=== PATIENT | male | born 1995 | race Caucasian/White ===

== ENCOUNTER 2016-07-13 00:28 | Emergency (ER) | payer BC ==
[~2016-07-13] VITALS: Ht 180.3 cm; Wt 61.5 kg
[2016-07-13 00:37] VITALS: BP 132/73; PULSE 80; RESP 16; TEMP 97.6; O2SAT 100
[2016-07-13] MEDS ORDERED: SODIUM CHLOR 0.9% 1000 ML INJ 1,000 ML IV SCH (00:49)
[2016-07-13 00:50] VITALS: BP 145/78; PULSE 80; RESP 18; O2SAT 100
[2016-07-13] MEDS ORDERED: ONDANSETRON HCL 4 MG/2 ML VIAL IVP ONE (01:00)
[2016-07-13] MEDS ORDERED: SODIUM CHLORIDE 0.9% FLUSH 10 ML FLUSH IV FLUSH PRN (01:00)
[2016-07-13] MEDS ORDERED: MORPHINE SULFATE 4 MG/ML INJ IV PUSH ONE (01:00)
[2016-07-13 01:05] VITALS: RESP 18; O2SAT 100
--- NOTE | 2016-07-13 01:10 | PD ---
HPI Chief Complaint: flank/testicular pain Time Seen by Provider: 00:42 Travel History International Travel<30 days: No Contact w/Intl Traveler<30days: No Traveled to known affect area: No History of Present Illness HPI 21-year-old male here for evaluation of left flank and testicular pain. Patient states that the symptoms started about an hour prior to arrival with left flank pain which then radiated to his testicles. Pain is now mainly in his bilateral testicles, constant, sharp, moderate to severe, worse with movement and palpation. States that the left flank pain is currently mild. He has been having some cloudy urine and dysuria lately. He states he has not been sexually active in several months. No history of abdominal surgeries. No fevers or chills. No nausea or vomiting. No trauma. PFSH Social History Tobacco Use: Yes Allergies-Medications (Allergen,Severity, Reaction): Coded Allergies: No Known Allergies (Unverified , 07/13/16) Reported Meds & Prescriptions Reported Meds & Active Scripts Active Flomax (Tamsulosin HCl) 0.4 Mg Cap 0.4 Mg PO HS Zofran Odt (Ondansetron Odt) 4 Mg Tab 4 Mg SL Q8HR PRN Lortab (Hydrocodone-Acetaminophen) 5-325 Mg Tab 1 Tab PO Q6H PRN Review of Systems Except as stated in HPI: all other systems reviewed are Neg Physical Exam Narrative GENERAL: Well-developed, well-nourished, overweight, no acute distress. SKIN: Focused skin assessment warm/dry. HEAD: Atraumatic. Normocephalic. EYES: Pupils equal and round. No scleral icterus. No injection or drainage. ENT: No nasal bleeding or discharge. Mucous membranes pink and moist. Poor dentition. NECK: Trachea midline. No JVD. CARDIOVASCULAR: Regular rate and rhythm. RESPIRATORY: No accessory muscle use. Clear to auscultation. Breath sounds equal bilaterally. GASTROINTESTINAL: Abdomen soft, non-tender, nondistended. : Normal-appearing genitalia without edema, without masses, without skin color changes. There is bilateral testicular tenderness without masses, without crepitus. Normal cremasterics reflex bilaterally. MUSCULOSKELETAL: No obvious deformities. No clubbing. No cyanosis. No edema. Mild left CVA tenderness. No right CVA tenderness. NEUROLOGICAL: Awake and alert. No obvious cranial nerve deficits. Motor grossly within normal limits. Normal speech. PSYCHIATRIC: Appropriate mood and affect; insight and judgment normal. Data Data Last Documented VS Vital Signs Date Time Temp Pulse Resp B/P Pulse Ox O2 Delivery O2 Flow Rate FiO2 07/13/16 03:05 16 07/13/16 03:05 76 131/71 99 Room Air 07/13/16 00:37 97.6 Orders Complete Blood Count With Diff (07/13/16 00:49) Comprehensive Metabolic Panel (07/13/16 00:49) Lipase (07/13/16 00:49) Prothrombin Time / Inr (Pt) (07/13/16 00:49) Act Partial Throm Time (Ptt) (07/13/16 00:49) Urinalysis - C+S If Indicated (07/13/16 00:49) Ct Abd/Pel W/O Iv Contrast (07/13/16 00:49) Iv Access Insert/Monitor (07/13/16 00:49) Ecg Monitoring (07/13/16 00:49) Oximetry (07/13/16 00:49) Morphine Inj (Morphine Inj) (07/13/16 01:00) Ondansetron Inj (Zofran Inj) (07/13/16 01:00) Sodium Chlor 0.9% 1000 Ml Inj (Ns 1000 M (07/13/16 00:49) Sodium Chloride 0.9% Flush (Ns Flush) (07/13/16 01:00) Gc And Chlamydia Pcr (07/13/16 00:49) Us Testicles W Doppler (07/13/16 00:49) Ketorolac Inj (Toradol Inj) (07/13/16 02:15) Tamsulosin (Flomax) (07/13/16 02:15) Potassium Chloride (Kcl) (07/13/16 02:15) Labs Laboratory Tests Test 07/13/16 07/13/16 00:45 01:00 Urine Color YELLOW Urine Turbidity MARKED Urine pH 7.5 Urine Specific [place] 1.019 Urine Protein TRACE mg/dL Urine Glucose (UA) NEG mg/dL Urine Ketones NEG mg/dL Urine Occult Blood LARGE Urine Nitrite NEG Urine Bilirubin NEG Urine Leukocyte Esterase NEG Urine RBC 25-49 /hpf Urine WBC 0-2 /hpf Urine Squamous Epithelial 0-5 /hpf Cells Urine Amorphous Sediment LARGE Urine Mucus FEW /lpf Microscopic Urinalysis Comment CULT NOT INDICATED White Blood Count 8.0 TH/MM3 Red Blood Count 4.61 MIL/MM3 Hemoglobin 14.5 GM/DL Hematocrit 42.8 % Mean Corpuscular Volume 92.7 FL Mean Corpuscular Hemoglobin 31.5 PG Mean Corpuscular Hemoglobin 33.9 % Concent Red Cell Distribution Width 13.5 % Platelet Count 192 TH/MM3 Mean Platelet Volume 8.5 FL Neutrophils (%) (Auto) 55.6 % Lymphocytes (%) (Auto) 36.7 % Monocytes (%) (Auto) 6.3 % Eosinophils (%) (Auto) 0.6 % Basophils (%) (Auto) 0.8 % Neutrophils # (Auto) 4.5 TH/MM3 Lymphocytes # (Auto) 2.9 TH/MM3 Monocytes # (Auto) 0.5 TH/MM3 Eosinophils # (Auto) 0.0 TH/MM3 Basophils # (Auto) 0.1 TH/MM3 CBC Comment DIFF FINAL Differential Comment Prothrombin Time 11.6 SEC Prothromb Time International 1.0 RATIO Ratio Activated Partial 21.0 SEC Thromboplast Time Sodium Level 141 MEQ/L Potassium Level 2.8 MEQ/L Chloride Level 104 MEQ/L Carbon Dioxide Level 25.2 MEQ/L Anion Gap 12 MEQ/L Blood Urea Nitrogen 8 MG/DL Creatinine 1.10 MG/DL Estimat Glomerular Filtration 83 ML/MIN Rate Random Glucose 124 MG/DL Calcium Level 9.3 MG/DL Total Bilirubin 0.5 MG/DL Aspartate Amino Transf 11 U/L (AST/SGOT) Alanine Aminotransferase 18 U/L (ALT/SGPT) Alkaline Phosphatase 69 U/L Total Protein 7.5 GM/DL Albumin 4.3 GM/DL Lipase 389 U/L [facility] Medical Decision Making Medical Screen Exam Complete: Yes Emergency Medical Condition: Yes Differential Diagnosis Nephrolithiasis, pyelonephritis, UTI, hydrocele, varicocele, testicular torsion , epididymitis, orchitis Narrative Course Initial vital signs show heart rate 80, blood pressure 132/73, pulse ox 100% on room air, oral temp of 97.6F. CBC is unremarkable. CMP is remarkable for potassium of 2.8 which was replaced orally. UA shows large occult blood, 25-49 RBCs, few mucus. CT abdomen pelvis: CONCLUSION: Mild hydronephrosis of the left kidney with the distal 2 mm UVJ stone. Testicular ultrasound: CONCLUSION: Normal examination. Patient made aware of all findings. He is resting comfortably. He is stable for discharge home with outpatient follow-up with a primary care physician/ urologist this week. I will give him a prescription for Flomax, pain medication , and antiemetics. He states he has had a few episodes of vomiting, likely contribute to his hypokalemia. He will also be discharged home with a urine strainer. He was informed on when to return to the emergency department. He verbalizes understanding and agreement with plan. Diagnosis Primary Impression: Ureterolithiasis Additional Impression: Hypokalemia Referrals: Jimy Marquez MD 1 week Urologist Primary Care Physician 3 days Additional Instructions: Follow-up with a primary care physician this week. Follow-up with urologist Dr. Marquez or a urologist of your choice this week. Return to the emergency department for worsening symptoms or any other concerns. Scripts Tamsulosin (Flomax)0.4 Mg Cap0.4 Mg PO HS #10 CAP Ref 0 Prov:Mario Cartwright MD 07/13/16 Ondansetron Odt (Zofran Odt)4 Mg Tab4 Mg SL Q8HR PRN (Nausea/Vomiting) #15 TAB Ref 0 Prov:Mario Cartwright MD 07/13/16 Hydrocodone-Acetaminophen (Lortab)5-325 Mg Tab1 Tab PO Q6H PRN (PAIN) #10 TAB Ref 0 Prov:Mario Cartwright MD 07/13/16 Disposition: 01 DISCHARGE HOME Condition: Stable Mario Cartwright MD Jul 13, 2016 01:10
[2016-07-13 01:16] LABS: BLOOD, URINE LARGE (NEG); GLUCOSE,URINE NEG (NEG); KETONE, URINE NEG (NEG); NITRITE,URINE NEG (NEG); PH, URINE 7.5 (5.0-8.5)
[2016-07-13 01:16] LABS: AUTOMATED NEUTROPHIL # 4.5 TH/MM3 (1.8-7.7); BASOPHIL # 0.1 TH/MM3 (0-0.2); BASOPHIL % 0.8 % (0.0-2.0); EOSINOPHIL % 0.6 % (0.0-4.0); HEMATOCRIT 42.8 % (39.0-51.0); HEMO FLAGS DIFF FINAL; LYMPH % 36.7 % (9.0-44.0); LYMPHOCYTE # 2.9 TH/MM3 (1.0-4.8); MEAN CELL VOLUME 92.7 FL (80.0-100.0); MEAN CORPUSCULAR HEMOGLOBIN 31.5 PG (27.0-34.0); MEAN CORPUSCULAR HGB CONC 33.9 % (32.0-36.0); MONO % 6.3 % (0.0-8.0); NEUT % 55.6 % (16.0-70.0); PLATELET COUNT 192 TH/MM3 (150-450); RED BLOOD COUNT 4.61 MIL/MM3 (4.50-5.90); RED CELL DISTRIBUTION WIDTH 13.5 % (11.6-17.2)
[2016-07-13 01:20] VITALS: BP 143/75; PULSE 68; RESP 18; O2SAT 100
[2016-07-13 01:22] LABS: MUCUS URINE FEW /lpf (OCC); URINE COLOR YELLOW (YELLW/STRAW)
[2016-07-13 01:23] LABS: SQUAMOUS EPITHELIAL CELL URINE 0-5 /hpf (0-5)
[2016-07-13 01:24] LABS: COMMENT (UR) CULT NOT INDICATED; CULTURE IF INDICATED CULT NOT INDICATED; WBC, URINE 0-2 /hpf (0-5)
[2016-07-13 01:29] LABS: PROTHROMBIN TIME - PATIENT 11.6 SEC (9.8-11.6)
[2016-07-13 01:58] LABS: ALKALINE PHOSPHATASE 69 U/L (45-117); ALT (GPT) 18 U/L (12-78); ANION GAP 12 MEQ/L (5-15); AST (GOT) 11 U/L (15-37); BICARBONATE 25.2 MEQ/L (21.0-32.0); BLOOD UREA NITROGEN 8 MG/DL (7-18); CHLORIDE 104 MEQ/L (98-107); GLOMERULAR FILTRATION RATE 83 ML/MIN (>89); SODIUM (NA) 141 MEQ/L (136-145); TOTAL BILIRUBIN ADULT 0.5 MG/DL (0.2-1.0)
[2016-07-13 01:59] LABS: POTASSIUM 2.8 MEQ/L (3.5-5.1)
--- NOTE | 2016-07-13 02:03 | RADHPO ---
EXAM DATE/TIME: 07/13/2016 01:37 [facility] COMPARISON: No previous studies available for comparison. INDICATIONS : Testicular pain. Evaluate for renal stone. ORAL CONTRAST: No oral contrast ingested. RADIATION DOSE: 7.48 CTDIvol (mGy) MEDICAL HISTORY : None SURGICAL HISTORY : None. ENCOUNTER: Initial ACUITY: 1 day PAIN SCALE: 8/10 LOCATION: Bilateral testicles TECHNIQUE: Volumetric scanning of the abdomen and pelvis was performed. Using automated exposure control and ad justment of the mA and/or kV according to patient size, radiation dose was kept as low as reasonably achievable to obtain optimal diagnostic quality images. FINDINGS: LOWER LUNGS: The visualized lower lungs are clear. LIVER: Homogeneous density without lesion. There is no dilation of the biliary tree. No calcified gallston es. SPLEEN: Normal size without lesion. PANCREAS: Within normal limits. KIDNEYS: Left kidney is slightly enlarged with mild hydronephrosis. The left ureter is dilated all the way rashid n to the left UVJ where there is a 2 mm stone. ADRENAL GLANDS: Within normal limits. VASCULAR: There is no aortic aneurysm. BOWEL/MESENTERY: The stomach, small bowel, and colon demonstrate no acute abnormality. There is no free intraperitone al air or fluid. ABDOMINAL WALL: Within normal limits. RETROPERITONEUM: There is no lymphadenopathy. BLADDER: No wall thickening or mass. REPRODUCTIVE: Within normal limits. INGUINAL: There is no lymphadenopathy or hernia. MUSCULOSKELETAL: Within normal limits for patient age. CONCLUSION: Mild hydronephrosis of the left kidney with the distal 2 mm UVJ stone. Desmond Granger MD on July 13, 2016 at 2:00 Board Certified Radiologist. This report was verified electronically.
[2016-07-13 02:10] VITALS: BP 148/86; PULSE 88; RESP 16; O2SAT 100
--- NOTE | 2016-07-13 02:13 | RADHPO ---
EXAM DATE/TIME: 07/13/2016 01:53 [facility] COMPARISON: No previous studies available for comparison. INDICATIONS : Left testicle pain. MEDICAL HISTORY : Left testicle pain. SURGICAL HISTORY : None. ENCOUNTER: Initial ACUITY: 1 day PAIN SCORE: 5/10 LOCATION: Left testicle. MEASUREMENTS: RIGHT TESTICLE: 2.6 x 2.2 x 4.3cm LEFT TESTICLE: 3.1 x 2.4 x 4.0cm FINDINGS: RIGHT TESTICLE: Homogeneous echotexture without intra or extratesticular mass. Blood flow is symmetric and within no rmal limits. No hydrocele or varicocele. Epididymis is within normal limits. LEFT TESTICLE: Homogeneous echotexture without intra or extratesticular mass. Blood flow is symmetric and within no rmal limits. No hydrocele or varicocele. Epididymis is within normal limits. SCROTUM: Within normal limits. CONCLUSION: Normal examination. Desmond Granger MD on July 13, 2016 at 2:11 Board Certified Radiologist. This report was verified electronically.
[2016-07-13] MEDS ORDERED: KETOROLAC TROMETHAMINE 30 MG/ML (IVP) VIAL IV PUSH ONE (02:15)
[2016-07-13] MEDS ORDERED: POTASSIUM CHLORIDE 20 MEQ CONTROLLED RELEASE TAB PO ONE (02:15)
[2016-07-13] MEDS ORDERED: TAMSULOSIN HCL 0.4 MG CAP PO ONE (02:15)
[2016-07-13] MEDS ORDERED: TAMS5CAP PO (02:25)
[2016-07-13] MEDS ORDERED: ZOFR4TAB3 SL (02:25)
[2016-07-13] MEDS ORDERED: HYDR-3533 PO (02:25)
[2016-07-13 03:05] VITALS: BP 131/71; PULSE 76; RESP 16; O2SAT 99
[2016-07-13 11:22] LABS: CHLAMYDIA PCR NOT DETECTED (NOT DETECT); NEISSERIA PCR NOT DETECTED (NOT DETECT)
== END 2016-07-13 03:25 | disposition home or self-care (01) ==
LOC: PHED 00:28
DX: N20.1 Calculus of ureter (principal); E87.6 Hypokalemia; N50.812 Left testicular pain; N50.811 Right testicular pain
CPT/HCPCS: 74176; 76870; 80053; 81001; 83690; 85025; 85610; 85730; 87491; 87591; 93975; 96361; 96374; 96375; 99285; J1885; J2270; J2405; J7030